=== PATIENT | female | born 1995 | race Caucasian/White ===

== ENCOUNTER 2018-01-21 14:52 | Inpatient (IN) | payer OTHER ==
[~2018-01-21] VITALS: Ht 162.5 cm; Wt 56.9 kg
[2018-01-21 16:00] VITALS: BP 115/74
[2018-01-21 16:51] LABS: BASO % 0.3 % (0.0-1.0); EOS # 0.1 10*3/uL (0.0-0.4); EOS % 0.4 % (1.0-4.0); HEMATOCRIT 49.1 % (37.0-47.0); HEMOGLOBIN 16.5 g/dl (12.0-16.0); LYMPH # 1.9 10*3/uL (1.3-4.4); LYMPH % 13.5 % (27.0-41.0); MEAN CELL VOLUME 89.8 fl (81.0-99.0); MEAN CORPUSCULAR HGB 30.2 pg (27.0-31.0); MEAN CORPUSCULAR HGB CONC 33.6 g/dl (33.0-37.0); MEAN PLATELET VOLUME 12.9 fl (9.6-12.3); MONO # 0.5 10*3/uL (0.1-1.0); MONO % 3.7 % (3.0-9.0); NEUT # 11.6 10*3/uL (2.3-7.9); NEUT % 81.8 % (47.0-73.0); PLATELET COUNT AUTOMATED 240 10*3/uL (130-400); RED BLOOD COUNT 5.47 10*6/uL (4.10-5.10); RED CELL DISTRI WIDTH 12.5 % (0-14.5); WHITE BLOOD COUNT 14.2 10*3/uL (4.8-10.8)
[2018-01-21 17:05] LABS: ALBUMIN 4.1 gm/dl (3.1-4.5); ALKALINE PHOSPHATASE 98 U/L (45-117); BUN 14 mg/dl (7-24); CHLORIDE 101 mmol/L (98-107); CREATININE 0.82 mg/dL (0.55-1.02); POTASSIUM 4.1 mmol/L (3.5-5.1); SGOT/AST 9 IU/L (3-35); SGPT/ALT 14 U/L (12-78); SODIUM 136 mmol/L (136-145); TOTAL PROTEIN 8.1 gm/dL (6.4-8.2)
[2018-01-21 17:08] LABS: BETA-HCG, QUANT < 1.0 mIU/mL (1-3); ETHYL ALCOHOL < 3.0 mg/dl (<3)
[2018-01-21 17:09] LABS: BILIRUBIN NEGATIVE (NEGATIVE); BLOOD NEGATIVE (NEGATIVE); CLARITY CLEAR (CLEAR); COLOR YELLOW (YELLOW); GLUCOSE 3+ (NEGATIVE); KETONE 1+ (NEGATIVE); LEUKO ESTERASE NEGATIVE (NEGATIVE); NITRITE NEGATIVE (NEGATIVE); SPECIFIC GRAVITY <= 1.005 (1.005-1.030); UROBILINOGEN 0.2 E.U./dl (0.2-1.0)
[2018-01-21] MEDS ORDERED: VALACYCLOVIR H500 M1 PO (17:11)
[2018-01-21] MEDS ORDERED: HUMALOG100 UNIT/2 SQ (17:12)
[2018-01-21] MEDS ORDERED: TRESIBA FL100 UNIT/1 SQ (17:13)
[2018-01-21 17:18] LABS: BACTERIA TRACE; URINE AMPHETAMINES < 1000 (1000ng/ml); URINE BARBITURATES < 200 (200ng/ml); URINE BENZODIAZEPINES < 200 (200ng/ml); URINE CANNABINOIDS (THC) < 50 (50ng/ml); URINE COCAINE < 300 (300ng/ml); URINE METHADONE < 300 (300ng/ml); URINE OPIATES > 300 (300ng/ml)
[2018-01-21 17:19] LABS: URINE PHENCYCLIDINE < 25 (25ng/ml)
[2018-01-21 17:28] VITALS: BP 132/72
[2018-01-21 20:05] VITALS: BP 100/76
[2018-01-22] VITALS: BP 101/66
[2018-01-22 06:54] LABS: HEMATOCRIT 45.5 % (37.0-47.0); HEMOGLOBIN 15.3 g/dl (12.0-16.0); MEAN CELL VOLUME 89.7 fl (81.0-99.0); MEAN CORPUSCULAR HGB 30.2 pg (27.0-31.0); MEAN CORPUSCULAR HGB CONC 33.6 g/dl (33.0-37.0); MEAN PLATELET VOLUME 12.9 fl (9.6-12.3); PLATELET COUNT AUTOMATED 244 10*3/uL (130-400); RED BLOOD COUNT 5.07 10*6/uL (4.10-5.10); RED CELL DISTRI WIDTH 12.9 % (0-14.5); WHITE BLOOD COUNT 14.7 10*3/uL (4.8-10.8)
[2018-01-22 07:07] LABS: ALBUMIN 3.7 gm/dl (3.1-4.5); BUN 21 mg/dl (7-24); CHLORIDE 107 mmol/L (98-107); CHOLESTEROL 161 mg/dL (<200); CREATININE 0.54 mg/dL (0.55-1.02); PHOSPHOROUS 4.8 mg/dL (2.5-4.9); POTASSIUM 3.3 mmol/L (3.5-5.1); SGOT/AST 7 IU/L (3-35); SGPT/ALT 12 U/L (12-78); SODIUM 143 mmol/L (136-145); TOTAL PROTEIN 7.2 gm/dL (6.4-8.2); TRIGLYCERIDES 108 mg/dl (<150); VLDL CHOLESTEROL 22 mg/dL (6-40)
[2018-01-22 07:13] LABS: ALKALINE PHOSPHATASE 81 U/L (45-117); FREE T4 0.98 ng/dl (0.76-1.46); HDL CHOLESTEROL 45 mg/dl (40-60); LDL CHOLESTEROL 94 mg/dL (9-159); THYROID STIM HORMONE (HS) 0.266 uIU/ml (0.358-4.75)
[2018-01-22 07:40] LABS: VITAMIN D, 25-HYDROXY 32.7 ng/mL (30-100)
[2018-01-22 08:00] VITALS: BP 90/42
[2018-01-22 08:01] LABS: BASOPHILS 1 % (0-1); PLATELET SUFFICIENCY NORMAL (NORMAL); TOTAL CELLS COUNTED 100 #CELLS
[2018-01-22 12:00] VITALS: BP 93/58
[2018-01-22 16:00] VITALS: BP 98/65
[2018-01-22 20:00] VITALS: BP 98/62
[2018-01-23] VITALS: BP 99/68
[2018-01-23 08:00] VITALS: BP 94/58
[2018-01-23] MEDS ORDERED: ZOFRAN 4 MG ED2 TAB PO (15:08)
[2018-01-23] MEDS ORDERED: METHOCARBAMOL750 M1 PO (15:08)
[2018-01-23] MEDS ORDERED: DICYCLOMINE HCL20 MG PO (15:08)
[2018-01-23 16:00] VITALS: BP 92/55
[2018-01-24] VITALS: BP 106/62
[2018-01-24 08:00] VITALS: BP 97/60
== END 2018-01-24 09:32 | disposition home or self-care (01) | DRG 897 ==
LOC: 5E 14:52
PROVIDERS: Internal Medicine; Registered Nurse
DX: F11.10 Opioid abuse, uncomplicated (principal); E10.649 Type 1 diabetes mellitus with hypoglycemia without coma; R65.10 Systemic inflammatory response syndrome (SIRS) of non-infectious origin without acute organ dysfunction; E10.65 Type 1 diabetes mellitus with hyperglycemia; E83.41 Hypermagnesemia; D75.1 Secondary polycythemia; D72.829 Elevated white blood cell count, unspecified; B00.9 Herpesviral infection, unspecified; E87.6 Hypokalemia; D72.810 Lymphocytopenia; Z91.14 Patient's other noncompliance with medication regimen; Z72.0 Tobacco use; Z71.6 Tobacco abuse counseling